=== PATIENT | female | born 1945 | race Caucasian/White ===

== ENCOUNTER 2016-11-21 21:51 | Observation (INO) | payer OTHER, MEDICARE ==
[~2016-11-21] VITALS: Ht 162.6 cm; Wt 125.9 kg
[~2016-11-21 21:51] MED LIST: ALBUTEROL SULF8.5 GM IH; BACTRIM,SEPT1 TABLET PO; CLINDAMYCIN HC300 MG PO; DOXYCYCLINE HY100 M3 PO; KETOCONAZOLE60 GM TP; OXYCODONE HCL5 MG PO; PREDNISONE50 MG PO; ROBITUSSIN AC,T10 ML PO; TYLENOL WITH C1 EACH PO; ZITHROMAX Z-PA250 MG PO
[2016-11-21 22:10] LABS: HEMATOCRIT 38.2 % (36.0-46.0); MCH 29.4 PG (29.0-34.0); MCHC 32.7 G/DL (30.0-36.0); MCV 89.9 FL (83-99); MEAN PLAT.VOLUME 10.1 uM^3 (9.5-12.4); PLATELET COUNT 246 K/uL (156-360); RBC DIS.WIDTH-CV 14.8 % (11.8-14.6); RBC DIS.WIDTH-SD 47.6 % (39-53); RED BLOOD COUNT 4.25 M/uL (3.80-5.20); WHITE BLOOD COUNT 8.9 K/uL (4.1-10.2)
[2016-11-21 22:19] LABS: CHLORIDE 106 mEq/L (99-109); POTASSIUM 3.9 mEq/L (3.7-5.4); SODIUM 141 mEq/L (136-147)
[2016-11-21 22:21] LABS: GLUCOSE 124 mg/dL (70-99)
[2016-11-21 22:22] LABS: ANION GAP 10 MEQ/L (2-14)
[2016-11-21 22:25] LABS: GFR ESTIMATE (CALCULATED) > 59 mL/min/
[2016-11-21 22:26] LABS: UREA NITROGEN (BUN) 21 mg/dL (9-23)
[2016-11-21 22:31] LABS: TROP-I INTERPRETATION NEGATIVE; TROPONIN-I < 0.01 ng/mL (0.0-0.30)
[2016-11-21 22:57] LABS: D-DIMER ELISA 0.57 mg/L FEU (< 0.57)
[2016-11-22 02:39] VITALS: BP 108/55
[2016-11-22 04:35] LABS: METH RESISTANT S AUREUS PCR POSITIVE (NEGATIVE)
[2016-11-22 04:47] LABS: PROBE CHECK PASS
[2016-11-22 05:03] LABS: TROP-I INTERPRETATION NEGATIVE; TROPONIN-I < 0.01 ng/mL (0.0-0.30)
[2016-11-22 08:09] VITALS: BP 109/60
[2016-11-22 10:59] LABS: TROP-I INTERPRETATION NEGATIVE; TROPONIN-I < 0.01 ng/mL (0.0-0.30)
[2016-11-22 12:17] VITALS: BP 110/65
[2016-11-22 13:20] VITALS: BP 110/65
== END 2016-11-22 15:15 | disposition home or self-care (01) ==
LOC: EME 21:51 → EDOF 11-22 01:49 → 5WEST 11-22 01:49
PROVIDERS: Internal Medicine; Physician Assistant
DX: R07.9 Chest pain, unspecified (principal); M25.512 Pain in left shoulder; J45.909 Unspecified asthma, uncomplicated; E11.9 Type 2 diabetes mellitus without complications; I10 Essential (primary) hypertension; E66.9 Obesity, unspecified; G43.909 Migraine, unspecified, not intractable, without status migrainosus; L40.9 Psoriasis, unspecified
CPT/HCPCS: 71010; 71275; 80048; 83880; 84484; 85027; 85379; 87641; 93005; 99281; 99285; G0378; J1650; J1885; J2270; J2405; J2765; J7030